=== PATIENT | male | born 1975 | race Hispanic/Latino ===

== ENCOUNTER 2017-09-17 02:58 | Emergency (ER) | payer OTHER ==
[2017-09-17 03:44] VITALS: BP 145/99
[2017-09-17 04:08] LABS: Basophils % (Auto) 0.4 % (0.0-1.8); Eosinophils # (Auto) 0.1 K/mm3 (0.0-0.4); Eosinophils % (Auto) 1.3 % (0.0-4.3); Hematocrit 38.8 % (35.5-45.6); Hemoglobin 13.2 gm/dl (11.8-15.2); Lymphocytes # (Auto) 1.1 K/mm3 (1.2-5.4); Lymphocytes % (Auto) 9.5 % (13.4-35.0); Mean Corpuscular HGB Conc 34 % (32-34); Mean Corpuscular Hemoglobin 33 pg (28-32); Mean Corpuscular Volume 97 fl (84-94); Monocytes # (Auto) 1.2 K/mm3 (0.0-0.8); Monocytes % (Auto) 11.2 % (0.0-7.3); Platelet Count 178 K/mm3 (140-440); Red Blood Count 4.02 M/mm3 (3.65-5.03); Red Cell Distribution Width 13.2 % (13.2-15.2)
[2017-09-17 04:27] LABS: BUN/Creatinine Ratio 20; Blood Urea Nitrogen 12 mg/dL (9-20); Calcium 8.9 mg/dL (8.4-10.2); Hemolysis Index 21
--- NOTE | 2017-09-17 08:32 | XRay Report ---
LEFT KNEE, 2 views: History: Left knee swelling. The bony architecture is intact without evidence of fracture or dislocation. No significant soft tissue abnormality is seen. IMPRESSION: Normal left knee.
--- NOTE | 2017-09-17 09:29 | Emergency Department Report ---
ED Lower Extremity HPI - General Chief Complaint: Extremity Injury, Lower Stated Complaint: LEFT LEG,KNEE SWELLING,REDNESS Time Seen by Provider: 09/17/17 09:29 Source: patient Mode of arrival: Ambulatory Limitations: No Limitations - Related Data Previous Rx's Medication Instructions Recorded Last Taken Type Clindamycin [Clindamycin CAP] 300 mg PO Q8H #30 cap 09/17/17 Unknown Rx traMADol [Ultram] 50 mg PO Q6HR PRN #12 tablet 09/17/17 Unknown Rx Allergies Allergy/AdvReac Type Severity Reaction Status Date / Time No Known Allergies Allergy Unverified 09/17/17 03:44 ED Review of Systems ROS: Stated complaint: LEFT LEG,KNEE SWELLING,REDNESS Other details as noted in HPI ED Past Medical Hx - Past Medical History Previous Medical History?: No - Surgical History Additional Surgical History: Tonsillectomy - Social History Smoking Status: Never Smoker Substance Use Type: None - Medications Home Medications: Home Medications Medication Instructions Recorded Confirmed Last Taken Type Clindamycin [Clindamycin CAP] 300 mg PO Q8H #30 cap 09/17/17 Unknown Rx traMADol [Ultram] 50 mg PO Q6HR PRN #12 tablet 09/17/17 Unknown Rx ED Physical Exam - General Limitations: No Limitations ED Course Vital Signs 09/17/17 09/17/17 03:03 03:31 Temperature 98.1 F 98.1 F Pulse Rate 88 94 H Respiratory 18 16 Rate Blood Pressure 145/99 145/99 O2 Sat by Pulse 97 97 Oximetry ED Lower Extremity MDM - Lab Data Result diagrams: 09/17/17 03:50 09/17/17 03:50 - Radiology Data Radiology results: report reviewed, image reviewed - Medical Decision Making SEE NOTE - Differential Diagnosis RO JOINT SPACE INFECTION Critical care attestation.: If time is entered above; I have spent that time in minutes in the direct care of this critically ill patient, excluding procedure time. ED Disposition Clinical Impression: Cellulitis, Knee pain Disposition: TO HOME OR SELFCARE Is pt being admited?: No Does the pt Need Aspirin: No Condition: Stable Instructions: Cellulitis (ED) Additional Instructions: FOLLOW UP WITH YOUR WORK COMP MD IN AM SCHEDULED LET HIM KNOW XRAY SHOWED NO INFECTION IN JOINT HE CAN SEND FAX TO US FOR LAB RESULTS CLINDA IM GIVEN TODAY TAKE MEDS WRITTEN TODAY THEY ARE TO BE TAKEN AND UNTIL GONE KEEP KNEE CLEAN AND DRY WASH WITH SOAP AND WATER KEEP COVERED EPSOM SALTS IN WARM WATER MAY BE HELPFUL FOR COMFORT Referrals: VAZQUEZ BROWN MD [Primary Care Provider] - 3-5 Days Time of Disposition: 09:41
[2017-09-17] MEDS ORDERED: CLEOCIN IM STA (09:30)
== END 2017-09-17 11:11 | disposition home or self-care (01) ==
LOC: ED 02:58
DX: L03.116 Cellulitis of left lower limb (principal)
CPT/HCPCS: 36415; 80048; 85025; 96372; 99283